=== PATIENT | male | born 1970 | race Caucasian/White ===

== ENCOUNTER 2023-01-03 20:36 | Emergency (ER) | payer OTHER, SELFPAY ==
[2023-01-03] VITALS (8 sets, daily range): BP systolic 125–134; BP diastolic 74–89; PULSE 81–84; RESP 18; TEMP 36.7; O2SAT 98–99; BMI 29.8
--- NOTE | 2023-01-03 20:50 | ED.GENADULT ---
HPI - General Adult General Time Seen by Provider: 20:56 Date Seen: 01/03/23 Chief complaint: Flank Pain Stated complaint: Possible kidney stone Time Seen by Provider: 01/03/23 20:42 Source: patient History of Present Illness HPI narrative: 52-year-old male who presents today with left flank pain. Had some aching starting this morning and then pain worse over the last 3 hours or so. Pain is worse with movement. Has not urinated today. Denies hematuria or dysuria. Denies nausea vomiting. History of kidney stones and says this feels similar. Took ibuprofen earlier with minimal improvement. No radiation into the testicles, no leg pain, no chest pain or upper back pain. Related Data Home Medications Medication Instructions Recorded Confirmed dextroamphetamine-amphetamine ER 2 cap PO DAILY 01/03/23 01/03/23 20 mg 24hr capsule,extend release (Adderall XR) levothyroxine 112 mcg tablet 112 mcg PO DAILY 01/03/23 01/03/23 Allergies Allergy/AdvReac Type Severity Reaction Status Date / Time Penicillins Allergy Mild Hives Verified 01/03/23 21:29 Review of Systems Status of ROS: Reports: 10 or more systems reviewed and unremarkable except as noted in History and below [facility] Medical History (Updated 01/03/23 @ 22:04 by Christian Sharma MD) Ketonuria ?R82.4 - Acetonuria (ICD-10) DELMA (generalized anxiety disorder) ?F41.1 - Generalized anxiety disorder (ICD-10) VIJAY (obstructive sleep apnea) ?G47.33 - Obstructive sleep apnea (adult) (pediatric) (ICD-10) Depression ?F32.A - Depression, unspecified (ICD-10) Arthritis ?M19.90 - Unspecified osteoarthritis, unspecified site (ICD-10) History of kidney stones ?Z87.442 - Personal history of urinary calculi (ICD-10) Hypothyroidism ?E03.9 - Hypothyroidism, unspecified (ICD-10) ADHD (attention deficit hyperactivity disorder) ?F90.9 - Attention-deficit hyperactivity disorder, unspecified type (ICD-10) Surgical History (Updated 01/03/23 @ 21:25 by Samson Bocanegra RN) History of hernia repair ?Z98.890 - Other specified postprocedural states (ICD-10) ?Z87.19 - Personal history of other diseases of the digestive system (ICD-10) Social History Smoking Status: Former smoker Second hand tobacco smoke exposure: No How often do you have a drink containing alcohol: never How often do you have six or more drinks on one occasion: Never AUDIT-C Alcohol total score: 0 Non-prescribed substance use: denies use Exam Narrative: Exam Narrative: General: Well-developed and well-nourished, no acute distress Head: Atraumatic and normocephalic Eyes: Pupils are equal reactive, extraocular motions intact, conjunctiva clear ENT: External nose and ears are normal, posterior pharynx without erythema or exudate Neck: No midline cervical tenderness, full spontaneous range of motion the neck, trachea midline, no adenopathy Heart: Regular rate and rhythm no murmurs or thrills Lungs: Clear to auscultation bilaterally without wheezes or crackles Abdomen: Soft, nontender, nondistended with active bowel sounds. Mild left CVA tenderness Musculoskeletal: No tenderness, deformity, or edema Neurologic: Awake, alert, and oriented x3, no gross focal neurologic deficits, cranial nerves intact as tested Psych: Mood and affect are appropriate Skin: No rashes Const: Vital Signs, click to edit/add: Vital Signs - 24 hr 01/03/23 20:46 01/03/23 21:05 01/03/23 21:06 Temperature 98.1 F 98.1 F 98.1 F Pulse Rate [Right Pulse Oximeter] 84 Respiratory Rate 18 Blood Pressure [Le ft Upper Arm] 134/89 Pulse Oximetry 99 Oxygen Delivery Me thod Room Air Documenting provider has reviewed patient's vital signs: yes Course Course Hospital Course: Patient seen and examined, prior records reviewed. Patient presents today with flank pain, history of kidney stones. Differential diagnosis includes but not limited to ureteral stone, hydronephrosis, pyelonephritis, musculoskeletal pain, aortic catastrophe. Patient presents with left flank pain that is been going on all day today worse in the last 3 hours so. Appears comfortable. No vomiting or retching, mild CVA tenderness. Pain is worse with movement which would seem more consistent with musculoskeletal pain the patient has had stones in the past and says this feels similar. Labs, Toradol, Tylenol, and CT scan ordered for further evaluation. Reevaluation(s) Time of Reevaluation #1: 21:47 Reevaluation #1: Labs independently interpreted by me with normal white blood cell count, reassuring basic panel. CT scan independently interpreted by me demonstrates a 3 mm proximal ureteral stone on the left with mild associated hydronephrosis. Patient will be discharged with instructions for outpatient follow-up with urology as well as oxycodone 5 mg every 6 hours as needed for pain, Tylenol ibuprofen Vital Signs Vital signs: Initial Vital Signs Temperature 98.1 F 01/03/23 20:46 Temperature Source Temporal Artery Scan 01/03/23 20:46 Pulse Rate 84 01/03/23 20:46 Respiratory Rate 18 01/03/23 20:46 Blood Pressure 134/89 01/03/23 20:46 Blood Pressure Mean 104 01/03/23 20:46 Blood Pressure Position Sitting 01/03/23 20:46 Pulse Oximetry 99 01/03/23 20:46 Oxygen Delivery Method Room Air 01/03/23 20:46 Vital Signs Temperature 98.1 F 01/03/23 20:46 Pulse Rate 84 01/03/23 20:46 Respiratory Rate 18 01/03/23 20:46 Blood Pressure 134/89 01/03/23 20:46 Pulse Oximetry 99 01/03/23 20:46 Oxygen Delivery Method Room Air 01/03/23 20:46 Temperature 98.1 F 01/03/23 21:06 Pulse Rate 84 01/03/23 20:46 Respiratory Rate 18 01/03/23 20:46 Blood Pressure 134/89 01/03/23 20:46 Pulse Oximetry 99 01/03/23 20:46 Oxygen Delivery Method Room Air 01/03/23 20:46 Medical Decision Making Medical Records Medical records reviewed: Yes I reviewed the patient's medical records Lab Data Lab results reviewed: Yes I reviewed the patient's lab results Labs: Lab Results 01/03/23 Range/Units 20:50 WBC 8.05 (4.50-11.00) K/uL RBC 5.03 (4.30-5.90) m/uL Hgb 15.3 (13.5-17.5) gm/dL Hct 46.5 (37.0-53.0) % MCV 92 (80-100) fL MCH 30 (26-34) pg MCHC 33 (32-36) gm/dL RDW Coeff of Margarita 12.9 (11.5-15.5) % Plt Count 247 (140-440) K/uL Neut % (Auto) 66.2 (42.0-72.0) % Lymph % (Auto) 17.3 L (20-44) % Morrow % (Auto) 11.1 H (0.0-11.0) % Eos % (Auto) 4.8 (0.0-7.0) % Baso % (Auto) 0.5 (0.0-3.0) % Neut # (Auto) 5.33 (1.7-7.0) K/uL Lymph # (Auto) 1.40 (0.90-2.90) K/uL Morrow # (Auto) 0.90 (0.00-0.90) K/UL Eos # (Auto) 0.39 (0.00-0.50) K/uL Baso # (Auto) 0.04 (0.00-0.30) K/uL Abs Immat Gran (auto) 0.01 (0.00-0.30) K/uL Imm/Tot Granulo (auto) 0.1 % Sodium 141 (135-149) mmol/L Potassium 4.6 (3.6-5.1) mmol/L Chloride 105 (96-114) mmol/L Carbon Dioxide 27 (20-32) mmol/L Anion Gap 9 (7-15) mEq/L BUN 21 (7-30) mg/dL Creatinine 1.4 (0.5-1.5) mg/dL Estimated Creat Clear 66.98 Estimated GFR 60 ml/min Glucose 82 (60-115) mg/dL Calcium 9.7 (8.4-10.6) mg/dL Discharge Plan Discharge Clinical Impression: Calculus of proximal left ureter Patient Disposition: Home, Self-Care Condition: Stable Instructions: Ureteral Stones (ED) Additional Instructions: Take Tylenol 650 or 1000 mg every 6 hours alternating with ibuprofen 400 mg every 6 hours for baseline pain management Take oxycodone for pain not controlled with Tylenol and ibuprofen Drink to thirst Call [facility] ([phone]) or [facility] ([phone]) to schedule follow-up appointment Discharge Diet: Regular Prescriptions: No Action dextroamphetamine-amphetamine [Adderall XR] 20 mg capsule,extended release 24hr 2 cap PO DAILY levothyroxine 112 mcg tablet 112 mcg PO DAILY Stand Alone Forms: [employer] Info Instructions
--- NOTE | 2023-01-03 20:56 | CRLHL7_ITS ---
For Patients: As a result of the Century Cures Act, medical imaging exams and procedure reports are released immediately into your electronic medical record. You may view this report before your referring provider. If you have questions, please contact your health care provider. INDICATION: Left flank pain TECHNIQUE: CT abdomen and pelvis without contrast, stone protocol. COMPARISON: None FINDINGS: Kidney/ureters: 3 mm stone in the left UPJ causing mild hydronephrosis and perirenal edema. No other nephrolithiasis. Right kidney is malrotated. Liver/gallbladder/bile ducts: Hepatic steatosis. Tiny liver cysts. Gallbladder is collapsed. No biliary dilatation. Spleen/pancreas/adrenal glands: The spleen, adrenal glands and pancreas are within normal limits. GI tract: The bowel is unremarkable. Abdominal wall/omentum/peritoneum: No free air or significant free fluid. No mass or inflammation. Lymph nodes: No lymphadenopathy. Pelvis: Unremarkable pelvis. Lower chest: Unremarkable. IMPRESSION: 3 mm left UPJ stone. Please note that all CT scans at this facility use dose modulation, iterative reconstruction, and/or weight-based dosing when appropriate to reduce radiation dose to as low as reasonably achievable. Dictated by Larry Singer MD @ 01/03/2023 10:32:27 PM (Electronically Signed)
[2023-01-03 21:05] LABS: Basophils Absolute Auto 0.04 K/uL (0.00-0.30); Basophils Percent Auto 0.5 % (0.0-3.0); Eosinophils Absolute Auto 0.39 K/uL (0.00-0.50); Eosinophils Percent Auto 4.8 % (0.0-7.0); Hematocrit 46.5 % (37.0-53.0); Hemoglobin* 15.3 gm/dL (13.5-17.5); Immature Granulocytes Abs Auto 0.01 K/uL (0.00-0.30); Immature Granulocytes Pct Auto 0.1 %; Lymphocytes Percent Auto 17.3 % (20-44); Mean Corpuscular HGB Conc 33 gm/dL (32-36); Mean Corpuscular Hemoglobin 30 pg (26-34); Mean Corpuscular Volume 92 fL (80-100); Monocytes Percent Auto 11.1 % (0.0-11.0); Neutrophils Absolute Auto 5.33 K/uL (1.7-7.0); Neutrophils Percent Auto 66.2 % (42.0-72.0); Platelet Count* 247 K/uL (140-440); RDW Coefficient of Variation % 12.9 % (11.5-15.5); Red Blood Count 5.03 m/uL (4.30-5.90); White Blood Count* 8.05 K/uL (4.50-11.00)
[2023-01-03] MEDS: ACETAMINOPHEN 500 MG TABLET 1000 MG PO (21:05)
[2023-01-03] MEDS: KETOROLAC 15 MG/ML inj IVP (21:06)
[2023-01-03 21:11] LABS: Slide Review Reflex No
[2023-01-03 21:17] LABS: Chloride* 105 mmol/L (96-114); Potassium* 4.6 mmol/L (3.6-5.1); Sodium* 141 mmol/L (135-149)
[2023-01-03 21:20] LABS: Anion Gap 9 mEq/L (7-15); Blood Urea Nitrogen* 21 mg/dL (7-30); Carbon Dioxide* 27 mmol/L (20-32); Creatinine* 1.4 mg/dL (0.5-1.5); Est. Creatinine Clearance* 66.98; Estimated Glomerular Filt Rate 60 ml/min; Glucose* 82 mg/dL (60-115)
[2023-01-03 21:21] LABS: Calcium* 9.7 mg/dL (8.4-10.6)
[2023-01-03 22:12] LABS: Appearance Urine Clear (Clear); Bilirubin Urine Negative (Negative); Blood Urine 2+ (Negative); Color Urine Yellow (Yellow); Glucose Urine Negative (Negative); Ketones Urine Negative (Negative); Leukocyte Esterase Urine Negative (Negative); Nitrite Urine Negative (Negative); Protein Urine 1+ (Negative); Specific Gravity Urine >= 1.030 (1.000-1.030); Urobilinogen Urine 0.2 (0.2-1.0)
[2023-01-03 22:26] LABS: Mucus Urine Few; Other Sediment Urine Few; RBC Urine 50-100 (0-2); Squamous Epithelial Cell Urine Few (None-Few); WBC Urine 0-2 (0-5)
[2023-01-03 22:27] LABS: Calcium Oxalate Crystals Urine Few
== END 2023-01-03 22:39 | disposition home or self-care (01) ==
PROVIDERS: Emergency Provider Family Medicine; PCP Family Medicine
DX: N20.1 Calculus of ureter (principal)
CPT/HCPCS: 36415; 74176; 80048; 81001; 85025; 94761; 96374; 99284; A9270; J1885